=== PATIENT | male | born 1955 | race Caucasian/White ===

== ENCOUNTER 2016-10-20 10:38 | Emergency (ER) | payer OTHER ==
[~2016-10-20] VITALS: Ht 172.7 cm; Wt 74.8 kg
--- NOTE | 2016-10-20 11:31 | ED SKIN/ALLERGY COMPLAINT ---
History of Present Illness General Chief Complaint: Lower Extremity Problems Stated Complaint: L FOOT REDNESS/BRUISING [id number] Source: patient Exam Limitations: no limitations Vital Signs & Intake/Output Vital Signs & Intake/Output Vital Signs Date Time Temp Pulse Resp B/P B/P Pulse O2 O2 Flow FiO2 Mean Ox Delivery Rate 10/20 1543 98.6 57 148/74 100 10/20 1325 98.9 58 20 145/73 100 10/20 1044 97.2 80 16 139/81 93 Room Air Allergies Coded Allergies: No Known Allergies (10/20/16) Reconcile Medications Amoxicillin 875 MG TABLET 1 TAB PO BID cellulitis Sulfamethoxazole/Trimethoprim (Bactrim Ds Tablet) 800 MG-160 MG TABLET 1 TAB PO BID cellulitis Triage Note: 60 Y/O MALE C/O BRUISING AND SWELLING TO L FOOT X 3 WEEKS; STATES HE SAW HIS DOCTOR WHO QUESTIONED SPIDER BITE VS TICK BITE - HAD OUTPATIENT BLOODWORK WITH [facility] BUT UNSURE OF RESULTS. STATES BRUISING HAS EXTENDED OVER THE LAST WEEK. DENIES INJURIES OR TRAUMA. SWELLING AND BRUISING NOTED UP [place]. Triage Nurses Notes Reviewed? yes Onset: Abrupt Duration: day(s):, constant, continues in ED Timing: recent history Severity: severe No Modifying Factors: none HPI: 60-year-old male comes into emergency room for further evaluation of redness and swelling and pain to his left foot/left ankle area. Symptoms going on for about 2 weeks. Patient cannot recall any particular trauma to the area. Denies any bites that he is aware. Denies any fever or chills. Patient reports that the pain is getting progressively worse to the area. Denies any other associated symptoms. Denies any prior history of this ever happening before. (JIMMY JOHNSON) Past History Travel History Traveled to [place] past 21 day No Medical History Any Pertinent Medical History? 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 No (JIMMY JOHNSON) Review of Systems Review of Systems Constitutional: Reports: no symptoms. EENTM: Reports: no symptoms. Respiratory: Reports: no symptoms. Cardiovascular: Reports: no symptoms. GI: Reports: no symptoms. Genitourinary: Reports: no symptoms. Musculoskeletal: Reports: see HPI. Skin: Reports: see HPI. Neurological/Psychological: Reports: no symptoms. Hematologic/Endocrine: Reports: no symptoms. Immunologic/Allergic: Reports: no symptoms. All Other Systems: Reviewed and Negative (JIMMY JOHNSON) Physical Exam Physical Exam General Appearance: mild distress Head: atraumatic Eyes: Bilateral: normal appearance. Ears, Nose, Throat: normal ENT inspection, hearing grossly normal Neck: normal inspection Respiratory: no respiratory distress Cardiovascular: regular rate/rhythm Back: normal inspection Extremities: rash left foot/ankle see below Neurologic/Psych: awake, alert, oriented x 3, normal mood/affect Skin: intact, rash Skin Problem Character: erythema, ecchymosis, mild warmth, small white papules Lymphatic: no anterior cervical swetha (JIMMY JOHNSON) Progress Differential Diagnosis: abscess/cellulitis, allergic reaction, anaphylaxis, asthma, contact dermatitis, vasculitis, cellulitis, necrotizing fasciitis, spider bite, Plan of Care: Orders Procedure Date/time Status WESTERGREN SED RATE 10/20 UNK Complete Durable Medical Equipment 10/20 1517 Active BLOOD CULTURE 10/20 1130 Active C-REACTIVE PROTEIN 10/20 1130 Complete COMPREHENSIVE METABOLIC PANEL 10/20 1130 Complete CBC WITHOUT DIFFERENTIAL 10/20 1130 Complete Laboratory Tests 10/20/16 1254: ESR Westergren 19 H 10/20/16 1225: Anion Gap 7, Estimated GFR > 60, BUN/Creatinine Ratio 10.0, Glucose 79, Calcium 10.0, Total Bilirubin 0.6, AST 20, ALT 27, Alkaline Phosphatase 70, C-Reactive Prot, Quant 1.4 H, Total Protein 6.7, Albumin 3.7, Globulin 3.0, Albumin/ Globulin Ratio 1.2, CBC w Diff NO MAN DIFF REQ, RBC 4.04 L, MCV 90.9, MCH 30.1, RDW 14.3, MPV 9.4, Gran % 52.8, Lymphocytes % 36.9, Monocytes % 8.6, Eosinophils % 1.2, Basophils % 0.5, Absolute Granulocytes 3.0, Absolute Lymphocytes 2.1, Absolute Monocytes 0.5, Absolute Eosinophils 0.1, Absolute Basophils 0, PUBS MCHC 33.1 Microbiology 10/20 1235 BLOOD: Blood Culture - RECD 10/20 1225 BLOOD: Blood Culture - RECD Diagnostic Imaging: Viewed by Me: Radiology Read, Ultrasound. Discussed w/RAD: Radiology Read, Ultrasound. Radiology Impression: EXAM TYPE: RAD - XRY-ANKLE 3 OR MORE VIEWS L; XRY-FOOT COMPLETE, LEFT EXAMINATION: LEFT ANKLE AND LEFT FOOT. CLINICAL INFORMATION: Swelling and bruising. COMPARISON: None TECHNIQUE: 3 views of left ankle and 3 views of left foot. FINDINGS: LEFT ANKLE: There is no visible acute fracture or dislocation. There is a subtle lucency along the distal fibula could represent stress fracture. The ankle mortise and subtalar joints are normal. There is mild lateral malleolar soft tissue swelling. LEFT FOOT: There is no visible acute fracture or dislocation left foot. The left foot joint space is maintained. The soft tissues are normal. IMPRESSION: No definite fracture or dislocation seen. However there is a subtle lucency along the distal fibula suspicious but not definite for a stress fracture. There is associated mild lateral malleolar soft tissue swelling. Correlation with MRI or bone scan can be performed. DICTATED BY : LAUREN CASILLAS MD DATE/TIME DICTATED:10/20/161205 FUNDRAISING SALE REPRESENTATIVE:KRISSY DATE/TIME TRANSCRIBED:10/20/161205, EXAM TYPE: US - US-UNILATERAL VENOUS DOPPLER EXAMINATION: US TRIPLEX LOWER EXTREMITY, LEFT CLINICAL INFORMATION: Left lower extremity pain and swelling. COMPARISON: None. TECHNIQUE: Color-flow triplex imaging with spectral analysis and compression Doppler were performed on the left lower extremity. FINDINGS: Respiratory variation, normal compression and augmented flow are noted throughout the left lower extremity. The visualized common femoral vein, proximal greater saphenous vein, femoral vein, profunda femoral vein, popliteal vein and visualized mid calf venous segments show no evidence of deep venous thrombosis. Peroneal veins are not identified with certainty. There is no Lane's cyst. IMPRESSION: No ultrasound evidence of deep venous thrombosis involving the left lower extremity. DICTATED BY: GAYLA LUA MD DATE/TIME DICTATED:10/20/161205 FUNDRAISING SALE REPRESENTATIVE:LUCAS DATE/TIME TRANSCRIBED:10/20/161205 Comments: 10/20/2016 4:46:11 PM Patient clinically looks well. Nontoxic-appearing. In no apparent distress. Afebrile. Patient seen by Dr. Martinez. Rash is atypical. Likely cellulitis. Patient covered with oral antibiotics. To return in 2 days for wound check. Put in a pneumatic pool and given crutches and told to stay nonweightbearing due to possible distal fibular fracture although no acute fractures definitively seen him patient does not have any traumatic injuries to indicate a fracture. (FRANKI SHELBY,JIMMY) Departure Departure Disposition: HOME OR SELF CARE Condition: Stable Clinical Impression Primary Impression: Cellulitis of left foot Secondary Impressions: Ankle fracture Referrals: NELIDA FELIX,GREG GARAY (PCP/Family) Additional Instructions: Take Bactrim and amoxicillin as prescribed. Return in 2 days for a wound check. Stay nonweightbearing on left ankle using a cane as much as possible. Follow- up with orthopedic doctor provided next week. Return if any other concerns worsening symptoms sooner. Please go over all results of today's visit with your primary care doctor. Contact your primary care doctor to let them know you were here in the emergency room. There may be nonspecific findings which may not be related to your visit today here in the emergency room but may require further evaluation and chronic monitoring by your primary care doctor. If you had a laceration today the chance of foreign body always remains. You should follow-up with your primary care doctor for recheck in 3-5 days for a wound check. If you had an x-ray done there is a chance that a fracture could have been missed on initial read and you should follow-up with your primary care doctor for repeat x-rays if symptoms persist. If your blood pressure was elevated here in the emergency room please have rechecked by her primary care doctor within the next 48 hours by your primary care doctor. If you were prescribed a narcotic here in the emergency room or any type of controlled substances you're not allowed to drive while taking this medication or operate any type of heavy machinery. Narcotics can make you feel lightheaded dizziness nausea and can cause constipation. You may need to cotton picker operator a stool softener. Thank you for choosing [facility] emergency room. Please return to the emergency room immediately if you have any other concerns worsening of symptoms. Departure Forms: Customer Survey General Discharge Information Prescriptions: Current Visit Scripts Amoxicillin 1 TAB PO BID #20 TAB Sulfamethoxazole/Trimethoprim (Bactrim Ds Tablet) 1 TAB PO BID #20 TAB (JIMMY JOHNSON) PA/ENVIRONMENTAL ENGINEERING MANAGER Co-Sign Statement Statement: ED Attending supervision documentation- [] I saw and evaluated the patient. I have also reviewed all the pertinent lab results and diagnostic results. I agree with the findings and the plan of care as documented in the PA's/ENVIRONMENTAL ENGINEERING MANAGER's documentation. [X] I have reviewed the ED Record and agree with the PA's/ENVIRONMENTAL ENGINEERING MANAGER's documentation. [] Additions or exceptions (if any) to the PAs/ENVIRONMENTAL ENGINEERING MANAGER's note and plan are summarized below: [] (JOSAFAT MARTINEZ DO) Procedures Splinting Location: left foot Manual Alignment Performed: No Pre-Made Type: pneumatic boot Splint Applied By: splint applied by me Pre-Proc Neuro Vasc Exam: normal Post-Proc Neuro Vasc Exam: normal (JIMMY JOHNSON)
--- NOTE | 2016-10-20 12:11 | ULTRASOUND REPORT ---
EXAMINATION: US TRIPLEX LOWER EXTREMITY, LEFT CLINICAL INFORMATION: Left lower extremity pain and swelling. COMPARISON: None. TECHNIQUE: Color-flow triplex imaging with spectral analysis and compression Doppler were performed on the left lower extremity. FINDINGS: Respiratory variation, normal compression and augmented flow are noted throughout the left lower extremity. The visualized common femoral vein, proximal greater saphenous vein, femoral vein, profunda femoral vein, popliteal vein and visualized mid calf venous segments show no evidence of deep venous thrombosis. Peroneal veins are not identified with certainty. There is no Lane's cyst. IMPRESSION: No ultrasound evidence of deep venous thrombosis involving the left lower extremity.
--- NOTE | 2016-10-20 12:13 | RADIOLOGY REPORT ---
EXAMINATION: LEFT ANKLE AND LEFT FOOT. CLINICAL INFORMATION: Swelling and bruising. COMPARISON: None TECHNIQUE: 3 views of left ankle and 3 views of left foot. FINDINGS: LEFT ANKLE: There is no visible acute fracture or dislocation. There is a subtle lucency along the distal fibula could represent stress fracture. The ankle mortise and subtalar joints are normal. There is mild lateral malleolar soft tissue swelling. LEFT FOOT: There is no visible acute fracture or dislocation left foot. The left foot joint space is maintained. The soft tissues are normal. IMPRESSION: No definite fracture or dislocation seen. However there is a subtle lucency along the distal fibula suspicious but not definite for a stress fracture. There is associated mild lateral malleolar soft tissue swelling. Correlation with MRI or bone scan can be performed.
[2016-10-20 12:46] LABS: ABSOLUTE BASOPHIL COUNT 0 /CUMM (0.0-0.2); ABSOLUTE EOSINOPHIL COUNT 0.1 /CUMM (0.0-0.7); ABSOLUTE LYMPH COUNT 2.1 /CUMM (1.2-3.4); ABSOLUTE MONOCYTE COUNT 0.5 /CUMM (0.10-0.60); BASOPHIL % 0.5 % (0.0-2.0); EOSINOPHIL % 1.2 % (0-5); GRANULOCYTE % 52.8 % (42.2-75.2); HEMATOCRIT 36.7 % (42-52); MEAN CORPUSCULAR HGB 30.1 PG (27.0-31.0); MEAN CORPUSCULAR HGB CONC 33.1 G/DL (33.0-37.0); MEAN CORPUSCULAR VOLUME 90.9 FL (80.0-94.0); MEAN PLATELET VOLUME 9.4 FL (7.4-10.4); PLATELET COUNT 184 /CUMM (130-400); RBC DISTRIBUTION WIDTH 14.3 % (11.5-14.5); RED BLOOD CELL CT 4.04 /CUMM (4.70-6.10); WHITE BLOOD CELL COUNT 5.8 /CUMM (4.8-10.8)
[2016-10-20] MEDS ORDERED: AMOXICILLIN875 M1 PO (15:16)
[2016-10-20] MEDS ORDERED: BACTRIM DS TAB1 EACH PO (15:16)
[2016-10-20 15:43] VITALS: BP 148/74
== END 2016-10-20 16:33 ==
LOC: ERH 10:38
PROVIDERS: Physician Assistant Medical
DX: S82.892A Other fracture of left lower leg, initial encounter for closed fracture (principal); L03.116 Cellulitis of left lower limb; X58.XXXA Exposure to other specified factors, initial encounter; Y93.9 Activity, unspecified; Y92.9 Unspecified place or not applicable
CPT/HCPCS: 73610-LT; 73630-LT; 87040; 96374

== ENCOUNTER 2016-10-22 10:54 | Emergency (ER) | payer OTHER ==
[~2016-10-22] VITALS: Ht 172.7 cm; Wt 72.6 kg
[~2016-10-22 10:54] MED LIST: AMOXICILLIN875 M1 PO; BACTRIM DS TAB1 EACH PO
[2016-10-22 10:59] VITALS: BP 106/70
--- NOTE | 2016-10-22 11:14 | ED ANKLE/FOOT INJURY COMPLAINT ---
History of Present Illness General Chief Complaint: General Adult Stated Complaint: WOUND CHECK Source: patient Exam Limitations: no limitations Vital Signs & Intake/Output Vital Signs & Intake/Output Vital Signs Date Time Temp Pulse Resp B/P B/P Pulse O2 O2 Flow FiO2 Mean Ox Delivery Rate 10/22 1059 98.6 103 18 106/70 98 Room Air Allergies Coded Allergies: No Known Allergies (10/20/16) Reconcile Medications Amoxicillin 875 MG TABLET 1 TAB PO BID cellulitis Sulfamethoxazole/Trimethoprim (Bactrim Ds Tablet) 800 MG-160 MG TABLET 1 TAB PO BID cellulitis Triage Note: 60 YO MALE TO ER FOR WOUND CHECK OF L FOOT. STATES HE HAD ?CELLULITIS. PT WISH WALKING BOOT ON FOOT IN TRIAGE, UNABLE TO VISUALIZE. Triage Nurses Notes Reviewed? yes Duration: day(s):, constant, continues in ED Timing: recent history Severity: moderate, severe Pain/Injury Location: Left: Foot, Ankle. No Modifying Factors: none HPI: 60-year-old male comes into emergency room for further evaluation of wound check the left ankle foot. Patient was seen here the other day for a rash. Patient was started on oral antibiotics. There was a questionable stress fracture in the left distal fibular bone. Patient was put in a boot and told to stay nonweightbearing and was to return today for wound check. He denies any fever chills. He reports there there is some improvement of the redness. Denies any other associated symptoms. (JIMMY JOHNSON) Past History Travel History Traveled to [place] past 21 day No Medical History Any Pertinent Medical History? 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 No (JIMMY JOHNSON) Review of Systems Review of Systems Constitutional: Reports: no symptoms. EENTM: Reports: no symptoms. Respiratory: Reports: no symptoms. Cardiovascular: Reports: no symptoms. GI: Reports: no symptoms. Genitourinary: Reports: no symptoms. Musculoskeletal: Reports: no symptoms. Skin: Reports: see HPI. Neurological/Psychological: Reports: no symptoms. Hematologic/Endocrine: Reports: no symptoms. Immunologic/Allergic: Reports: no symptoms. All Other Systems: Reviewed and Negative (JIMMY JOHSNON) Physical Exam Physical Exam General Appearance: well developed/nourished, mild distress Head: atraumatic Eyes: Bilateral: normal appearance. Ears, Nose, Throat: normal ENT inspection, hearing grossly normal Neck: normal inspection Cardiovascular/Respiratory: no respiratory distress Back: normal inspection Leg/Knee/Thigh Left: normal inspection Ankle Left: erythema, warmth, pulses intact, Foot Left: see above Tendon: normal tendon function Psychiatric: awake, alert, oriented x 3 Skin: intact, normal color, warm/dry (JIMMY JOHNSON) Progress Differential Diagnosis: DVT, arterial insufficiency, cellulitis, septic arthritis, gout, fracture, dislocation, sprain, contact dermatitis, Plan of Care: 10/22/2016 11:53:41 AM There is an improvement from the rash of the day. Patient was placed in a boot as opposed to a posterior splint due to the infection and the concern that the splint would make a potentially worse. Patient was referred to orthopedic doctor who he is going to follow up with this week coming up. Continue antibiotics. Follow-up primary care doctor. Understands and agrees with plan of care. (JIMMY JOHNSON) Departure Departure Disposition: HOME OR SELF CARE Condition: Stable Clinical Impression Primary Impression: Visit for wound check Secondary Impressions: Ankle pain Referrals: GREG TRENT (PCP/Family) Additional Instructions: Continued to stay nonweightbearing on her left ankle. Follow-up with orthopedic doctor next week. Finish course of antibiotics. Return if any other concerns. Departure Forms: Customer Survey General Discharge Information (JIMMY JOHNSON) PA/STAPLER COIL [employer]IT Co-Sign Statement Statement: ED Attending supervision documentation- [] I saw and evaluated the patient. I have also reviewed all the pertinent lab results and diagnostic results. I agree with the findings and the plan of care as documented in the PA's/[employer]'s documentation. [X] I have reviewed the ED Record and agree with the PA's/[employer]'s documentation. [] Additions or exceptions (if any) to the PAs/[employer]'s note and plan are summarized below: [] (MICKEY FELIX,MARIBEL Jefferson)
== END 2016-10-22 11:21 ==
LOC: ERH 10:54
DX: M25.572 Pain in left ankle and joints of left foot (principal)

== ENCOUNTER 2016-10-25 19:56 | Inpatient (IN) | payer OTHER ==
[~2016-10-25] VITALS: Ht 172.7 cm; Wt 72.6 kg
--- NOTE | 2016-10-25 19:58 | NUR ---
PT BIBA ?ALTERED MENTAL STATUS. PT WAS FOUND EXTREMELY HOT TO THE TOUCH, PT AWAKE BUT NOT ABLE TO FOLLOW COMMANDS, NOT MAKE PURPOSEFUL MOVEMENTS. IS NOT ABLE TO FOLLOW COMMANDS. PER EMS PT HAS UNKNOWN PILLS AT BEDSIDE, PT GIVEN 1.2MG NARCAN WITH SOME RESPONSE BY EMS. AT BEDSIDE FOR PT EVAL.
--- NOTE | 2016-10-25 20:01 | NUR ---
PT RECTAL TEMPERATURE 105.4. PT NSR ON CADDYMASTER IN 80'S. O2 SAT 95% ON ROOM AIR. MADE AWARE.
--- NOTE | 2016-10-25 20:01 | ED GENERAL ADULT ---
See Addendum History of Present Illness General Chief Complaint: Altered Mental Status Stated Complaint: AMS Source: old records, EMS Exam Limitations: clinical condition Vital Signs & Intake/Output Vital Signs & Intake/Output Vital Signs Date Time Temp Pulse Resp B/P B/P Pulse O2 O2 Flow FiO2 Mean Ox Delivery Rate 10/25 2306 98.7 93 20 128/63 96 Room Air 10/25 2229 98.6 10/25 2128 100.5 81 17 113/56 97 Room Air 10/25 2120 101.5 10/25 2118 101.5 82 17 111/56 96 Room Air 10/26 2111 95 Room Air 10/25 2057 103.5 90 119/56 95 Room Air 10/25 2053 105.4 10/25 2030 97 16 124/82 95 Room Air 10/25 1957 105.4 111 14 134/98 94 Room Air Allergies Coded Allergies: No Known Allergies (10/20/16) Reconcile Medications Amoxicillin 875 MG TABLET 1 TAB PO BID cellulitis Atorvastatin Calcium 10 MG TABLET 1 TAB PO DAILY CHOLESTEROL (Reported) Diclofenac Sodium (Voltaren) 1 % GEL..GRAM. 4 GM TOP Q12H PAIN/INFLAMMATION ( Reported) apply to affected area(s) Gabapentin (Unknown Strength) CAPSULE (Unknown Dose) PO AD UNKNOWN (Reported) Levothyroxine Sodium 112 MCG TABLET 1 TAB PO DAILY THYROID (Reported) Lisinopril 5 MG TABLET 1 TAB PO DAILY BP (Reported) Magnesium Oxide 400 MG TABLET 1 TAB PO BID SUPPLEMENT (Reported) Oxycodone HCl 10 MG TABLET 1 TAB PO Q6H PAIN (Reported) Quetiapine Fumarate (Seroquel XR) 300 MG TAB.ER.24H 1 TAB PO QPM UNKNOWN ( Reported) Sulfamethoxazole/Trimethoprim (Bactrim Ds Tablet) 800 MG-160 MG TABLET 1 TAB PO BID cellulitis Trazodone HCl (Unknown Strength) TABLET (Unknown Dose) PO AD UNKNOWN ( Reported) Venlafaxine HCl (Venlafaxine HCl ER) (Unknown Strength) CAP.ER.24H (Unknown Dose) PO AD UNKNOWN (Reported) Triage Nurses Notes Reviewed? yes HPI: Patient was found semi-responsive on his living room floor by his roommate. Upon EMS arrival they noted the apartment to be very hot. Patient very hot to the touch. Patient had pinpoint pupils. Patient was given 1.2 mg of Narcan. He shouldn't mental status slightly improved however the patient remained nonverbal and not following commands. Patient was collar for protection. Patient has a small abrasion above his left eye. Patient was seen in the emergency department 2 days ago for an evaluation and follow-up for cellulitis of his left foot. Patient has been on dual antibiotics. Past History Medical History Any Pertinent Medical History? 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 No Review of Systems Review of Systems Constitutional: Reports: see HPI. Physical Exam Physical Exam General Appearance: lethargic, severe distress Head: SMALL ABRASION ABOVE HIS LEFT EYE, NO HEMATOMA Eyes: Bilateral: PERRL, EOMI. Ears, Nose, Throat: normal pharynx, DRY MUCOSA Neck: normal inspection, supple, full range of motion Respiratory: normal breath sounds, lungs clear Cardiovascular: normal peripheral pulses, tachycardia Gastrointestinal: normal bowel sounds, soft, no organomegaly Back: normal inspection, normal range of motion Extremities: normal inspection, normal capillary refill, normal range of motion, no edema Neurologic/Psych: disoriented x 3 Skin: HOT/DRY Core Measures ACS in differential dx? No CVA/TIA Diagnosis: No Severe Sepsis Present: No Septic Shock Present: No Progress Differential Diagnoses I considered the following diagnoses in my evaluation of the patient: [ Heatstroke, trauma, sepsis] Plan of Care: Orders Procedure Date/time Status Patient Data 10/25 2352 Active Lab Add-on Test 10/25 2312 Active Patient Data 10/25 2259 Active CREATINE PHOSPHOKINASE 10/25 2025 Complete BLOOD CULTURE 10/26 1999 Active URINE DRUGS OF ABUSE 10/26 1999 Complete URINALYSIS 10/26 1999 Complete TROPONIN LEVEL 10/26 1999 Complete LACTIC ACID 10/26 1999 Complete ETHANOL 10/26 1999 Complete COMPREHENSIVE METABOLIC PANEL 10/26 1999 Complete CBC WITHOUT DIFFERENTIAL 10/26 1999 Complete EKG 10/26 1999 Active Telemetry/Court Manager 10/25 UNK Active Current Medications Sig/Constance Start time Last Medication Dose Stop Time Status Admin Sodium Chloride 1,000 ML Q6H 10/25 2330 AC (Normal Saline 0.9%) Laboratory Tests 10/25/16 2300: Lactic Acid Cancelled 10/25/16 2200: Urine Opiates Screen 227.00, Methadone Screen 44, Barbiturate Screen < 60, Ur Phencyclidine Scrn < 6.00, Amphetamines Screen < 100, U Benzodiazepines Scrn < 85, Urine Cocaine Screen < 50, Urine Cannabis Screen < 5.00, Urinalysis LIGHT H , Urine Color YEL, Urine Clarity HAZY H, Urine pH 7.5, Ur Specific [place] 1.010, Urine Protein NEG, Urine Ketones NEG, Urine Nitrite NEG, Urine Bilirubin NEG, Urine Urobilinogen 0.2, Ur Leukocyte Esterase NEG, Ur Microscopic SEDIMENT EXAMINED, Urine RBC 1-3, Urine Hemoglobin LARGE H, Urine Glucose NEG 10/25/162024: Anion Gap 8, Estimated GFR 48 L, BUN/Creatinine Ratio 6.7 L, Glucose 105 H, Lactic Acid 1.5, Calcium 9.0, Total Bilirubin 0.7, AST 24, ALT 33, Alkaline Phosphatase 57, Creatine Kinase 334 H, Troponin I < 0.01, Total Protein 6.0 L, Albumin 3.2 L, Globulin 2.8, Albumin/Globulin Ratio 1.1, CBC w Diff NO MAN DIFF REQ, RBC 3.52 L, MCV 89.9, MCH 30.4, RDW 14.3, MPV 9.2, Gran % 73.4, Lymphocytes % 16.2 L, Monocytes % 8.9, Eosinophils % 0.9, Basophils % 0.6, Absolute Granulocytes 3.3, Absolute Lymphocytes 0.7 L, Absolute Monocytes 0.4, Absolute Eosinophils 0, Absolute Basophils 0, PUBS MCHC 33.8, Serum Alcohol < 10.0 Microbiology 10/25 2044 BLOOD: Blood Culture - RECD 10/25 2024 BLOOD: Blood Culture - RECD Diagnostic Imaging: Viewed by Me: Radiology Read, CT Scan. Discussed w/RAD: Radiology Read, CT Scan. Radiology Impression: PATIENT: JOSAFAT ALVARADO PRESENT AGE: 60 PATIENT ACCOUNT NO: [id number] : 55 LOCATION: [facility] ORDERING PHYSICIAN: MARIBEL AREVALO MD SERVICE DATE: 10/25/16-2057 EXAM TYPE: CAT - CT CERV SPINE WO IV CONTRAST; CT HEAD WO IV CONTRAST EXAMINATION: CT HEAD WITHOUT CONTRAST CT CERVICAL SPINE WITHOUT CONTRAST CLINICAL INFORMATION: Found down. Head injury. COMPARISON: None. TECHNIQUE: Contiguous axial imaging was performed from the skull base to vertex without intravenous administration of contrast. In addition, helical noncontrast CT imaging was acquired through the cervical spine and source images were reviewed along with axial reconstructions and sagittal and coronal MPRs. DLP: 1051 mGy-cm FINDINGS: HEAD: There is a nodular focus of high density in the high left frontal lobe centered in the cortex measuring 6 mm without surrounding edema. There is some platelike high density within a nearby high left frontal sulcus. There is also some slightly high density which may be within a regional cortical vein. No evolving territorial infarct. Mild to moderate generalized prominence of the ventricles, sulci, and extra-axial CSF spaces. 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 There is mild ex vacuo dilatation of the frontal horn of the right lateral ventricle. There is no shift of the normally midline structures. The visualized posterior fossa is unremarkable. No calvarial fractures. There is mild mucosal thickening in the frontal, ethmoid, sphenoid, and right maxillary sinuses with a retention cyst in the right maxillary sinus. The mastoid air cells and middle ear cavities are clear. The temporomandibular joints articulate normally. No obvious soft tissue abnormality. The orbits appear unremarkable. CERVICAL SPINE: There is no evidence of cervical spinal fracture or traumatic subluxation vertebral body height is maintained. Sagittal alignment is maintained. No prevertebral soft tissue swelling. Atlantoaxial and atlantooccipital articulations are maintained. No abnormal density within the cervical canal. There is no significant bony canal stenosis. Right-sided uncovertebral hypertrophy mildly narrows the right foramen at C4-C5. Disc osteophyte complex results in high-grade left and moderate right foraminal stenosis at C6-C7. There is prominence of the lymphoid tissue at the tongue base which can be correlated with direct inspection. Scattered foci of mineralization are present within this region. The visualized larynx appears unremarkable. No focal thyroid lesions. No upper mediastinal adenopathy. The lung apices demonstrate some biapical pleural-parenchymal scarring without evidence of pneumothorax. Some small foci of air are seen within the jugular veins bilaterally. No cervical adenopathy. IMPRESSION: 1. A 6 mm nodular focus of high density within the high left frontal lobe, possibly a small intraparenchymal hemorrhage, although a small cortical mass is not excluded. Correlation with MRI of the brain without and with contrast is suggested. Minor regional high density within the left frontal sulci concerning for subarachnoid hemorrhage. There is no significant soft tissue swelling. 2. A curvilinear focus of high density along the left frontal convexity near the above described abnormalities, nonspecific but appearing to be along the course of a regional cortical vein. A small region of cortical vein thrombosis would be hard to exclude. This too can be further evaluated with MRI/MRV. 3. No evidence of cervical spinal fracture or traumatic subluxation. 4. Prominence of the lymphoid tissue at the tongue base which can be correlated with direct inspection. This critical result was communicated with Dr. Arevalo at 10:15PM on 10/25/2016 and the content and urgency was understood at the time of direct communication. DICTATED BY: SKYLAR BOND MD DATE/TIME DICTATED:10/25/162157 FURNACE COOLER:KRISSY DATE/ TIME TRANSCRIBED:10/25/162157 CONFIDENTIAL, DO NOT COPY WITHOUT APPROPRIATE AUTHORIZATION. <Electronically signed in Other Vendor System> SIGNED BY: SKYLAR BOND MD 10/25/162220 Initial ED EKG: NSR, nonspecific ST T wave chg Comments: Patient's temperature has come down with a cold blanket and heavy Tylenol. Patient is currently awake alert and oriented. Patient states that he only took his pain medication as it was prescribed. Patient is received 3 L of fluid as well as broad spectrum antibiotics however given everything it seems that this is more of a heat stroke then true sepsis. Discussed with Dr. Barnhart, CAT scan results have been relayed. Unlikely subarachnoid hemorrhage given the lack of any neurological findings nor is there any headache. ED Sepsis Exam Date of Focused Sepsis Exam: 10/25/16 Time of Focused Sepsis Exam: 2100 Sepsis Cardiac Exam: Tachycardia Sepsis Resp Exam: CTA Sepsis Cap Refill Exam: <2 Sec Sepsis Peripheral Pulse Exam: Normal Sepsis Peripheral Pulse Location: Radial Sepsis Skin Color Exam: Normal for Ethnicity Skin Temp/Moisture Exam: Hot/Dry Departure Departure Disposition: STILL A PATIENT Condition: Guarded Clinical Impression Primary Impression: Heat stroke Secondary Impressions: Abnormal head CT Referrals: GREG TRENT (PCP/Family) Departure Forms: Customer Survey General Discharge Information Admission Note Spoke With: BURKE MONTE MD Documentation of Exam: Documentation of any treatments & extenuating circumstances including Concerns Regarding Discharge (functional status, medication knowledge or non-compliance, living conditions, etc.) that warrant an admission rather than observation: [IV FLUIDS, MRI/MRA OF HEAD, NEURO CONSULT] Critical Care Note Critical Care Note Critical Care Time: mins: (90 MIN)
--- NOTE | 2016-10-25 20:17 | NUR ---
PT ATTMPTED TO HAVE DOZIER PLACED, CATHTETER INABLE TO BE ADVANCED THROUGH. RN MAC AT BEDSIDE FOR ATTEMPT, UNSUCCESSFUL. UPON GETTING PT CHANGED, GETTING BLOODWORK/CULTURES, AND PLACING PT ON COOLING BLANKETS, PT IV BECAME DISLODGED.
--- NOTE | 2016-10-25 20:30 | NUR ---
LABS SENT (BLUE,SST,LAV,COOPER, BC #1)
[2016-10-25 20:45] LABS: ABSOLUTE BASOPHIL COUNT 0 /CUMM (0.0-0.2); ABSOLUTE EOSINOPHIL COUNT 0 /CUMM (0.0-0.7); ABSOLUTE GRANULOCYTE CT 3.3 /CUMM (1.4-6.5); ABSOLUTE LYMPH COUNT 0.7 /CUMM (1.2-3.4); ABSOLUTE MONOCYTE COUNT 0.4 /CUMM (0.10-0.60); BASOPHIL % 0.6 % (0.0-2.0); EOSINOPHIL % 0.9 % (0-5); GRANULOCYTE % 73.4 % (42.2-75.2); MEAN CORPUSCULAR HGB 30.4 PG (27.0-31.0); MEAN CORPUSCULAR HGB CONC 33.8 G/DL (33.0-37.0); MEAN CORPUSCULAR VOLUME 89.9 FL (80.0-94.0); MEAN PLATELET VOLUME 9.2 FL (7.4-10.4); PLATELET COUNT 144 /CUMM (130-400); RBC DISTRIBUTION WIDTH 14.3 % (11.5-14.5); RED BLOOD CELL CT 3.52 /CUMM (4.70-6.10); WHITE BLOOD CELL COUNT 4.6 /CUMM (4.8-10.8)
[2016-10-25 20:47] LABS: HEMATOCRIT 31.6 % (42-52)
--- NOTE | 2016-10-25 20:50 | NUR ---
BLOOD CULTURE #2 SENT
--- NOTE | 2016-10-25 20:54 | NUR ---
TWO IV'S EST BY RN PAIGE #18 IN RIGHT FOREARM AND #18 IN RAC. 1G OFFIRMEV ADMINISTERED AND TWO LITERS OF NS INFUSING PER EMAR.
--- NOTE | 2016-10-25 21:20 | NUR ---
PT REMAINS MAKING NON-PURPOSEFUL MOVEMENTS, UNABLE TO ANSWER QUESTIONS OR FOLLOW COMMANDS. PT REMAINS ON COOLING BLANKETS, RECTAL TEMP 101.5. REMAINS IN NSR AT 82 AND 96% ON ROOM AIR. 3RD LITER OF NS INFUSING PER EMAR
[2016-10-25] MEDS ORDERED: LEVOTHYROXINE112 MCG PO (21:25)
[2016-10-25] MEDS ORDERED: ATORVASTATIN CA10 M1 PO (21:25)
[2016-10-25] MEDS ORDERED: LISINOPRIL5 M1 PO (21:26)
[2016-10-25] MEDS ORDERED: VOLTAREN100 GM TOP (21:26)
[2016-10-25] MEDS ORDERED: SEROQUEL XR300 M1 PO (21:27)
[2016-10-25] MEDS ORDERED: GABAPENTIN400 M2 PO (21:27)
[2016-10-25] MEDS ORDERED: MAGNESIUM OXID400 M1 PO (21:27)
--- NOTE | 2016-10-25 21:28 | NUR ---
PT MEDICATED WITH 1G FORTAZ PER EMAR. PT RECTAL TEMP DOWN TO 100.5.
[2016-10-25] MEDS ORDERED: OXYCODONE HCL10 M2 PO (21:30)
[2016-10-25] MEDS ORDERED: TRAZODONE HCL50 M1 PO (21:32)
[2016-10-25] MEDS ORDERED: VENLAFAXINE HCL75 M1 PO (21:33)
--- NOTE | 2016-10-25 21:45 | NUR ---
PT NOW ABLE TO ANSWER QUESTIONS, WAS ABLE TO RECALL EVENTS FROM EARLIER TODAY AND MEDICATIONS HE HAS BEEN TAKING. PT TO CAT SCAN VIA STRETCHER. TEMP DOWN TO 100.3. MADE AWARE.
--- NOTE | 2016-10-25 22:08 | NUR ---
PT FROM CAT SCAN. PLACED BACK ON RAYON TESTER, NSR @ 78. REMAINS AT 96% ON ROOM AIR. PT NOW ABLE TO ANSWER QUESTIONS APPROPRIATELY, DROWSY BUT AROUSABLE TO VOICE. MAKING PURPOSEFUL MOVEMENTS. PT MEDICATED WITH VANCOMYCIN PER EMAR
--- NOTE | 2016-10-25 22:10 | NUR ---
PT ABLE TO URINATE IN URINAL INDEPENDENTLY, URINE TRIO OBTAINED AND SENT TO LAB
--- NOTE | 2016-10-25 22:13 | NUR ---
XRAY AT BEDSIDE FOR IMAGING
--- NOTE | 2016-10-25 22:16 | NUR ---
PT TO REMAIN OFF COOLING BLANKETS PER VERBAL ORDER BY . PT REMAINS ALERT AND ORIENTED X3. NSR AT 78, 96% ON ROOM AIR. TEMPERATURE 98.6
--- NOTE | 2016-10-25 22:21 | CT SCAN REPORT ---
EXAMINATION: CT HEAD WITHOUT CONTRAST CT CERVICAL SPINE WITHOUT CONTRAST CLINICAL INFORMATION: Found down. Head injury. COMPARISON: None. TECHNIQUE: Contiguous axial imaging was performed from the skull base to vertex without intravenous administration of contrast. In addition, helical noncontrast CT imaging was acquired through the cervical spine and source images were reviewed along with axial reconstructions and sagittal and coronal MPRs. DLP: 1051 mGy-cm FINDINGS: HEAD: There is a nodular focus of high density in the high left frontal lobe centered in the cortex measuring 6 mm without surrounding edema. There is some platelike high density within a nearby high left frontal sulcus. There is also some slightly high density which may be within a regional cortical vein. No evolving territorial infarct. Mild to moderate generalized prominence of the ventricles, sulci, and extra-axial CSF spaces. 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 There is mild ex vacuo dilatation of the frontal horn of the right lateral ventricle. There is no shift of the normally midline structures. The visualized posterior fossa is unremarkable. No calvarial fractures. There is mild mucosal thickening in the frontal, ethmoid, sphenoid, and right maxillary sinuses with a retention cyst in the right maxillary sinus. The mastoid air cells and middle ear cavities are clear. The temporomandibular joints articulate normally. No obvious soft tissue abnormality. The orbits appear unremarkable. CERVICAL SPINE: There is no evidence of cervical spinal fracture or traumatic subluxation vertebral body height is maintained. Sagittal alignment is maintained. No prevertebral soft tissue swelling. Atlantoaxial and atlantooccipital articulations are maintained. No abnormal density within the cervical canal. There is no significant bony canal stenosis. Right-sided uncovertebral hypertrophy mildly narrows the right foramen at C4-C5. Disc osteophyte complex results in high-grade left and moderate right foraminal stenosis at C6-C7. There is prominence of the lymphoid tissue at the tongue base which can be correlated with direct inspection. Scattered foci of mineralization are present within this region. The visualized larynx appears unremarkable. No focal thyroid lesions. No upper mediastinal adenopathy. The lung apices demonstrate some biapical pleural-parenchymal scarring without evidence of pneumothorax. Some small foci of air are seen within the jugular veins bilaterally. No cervical adenopathy. IMPRESSION: 1. A 6 mm nodular focus of high density within the high left frontal lobe, possibly a small intraparenchymal hemorrhage, although a small cortical mass is not excluded. Correlation with MRI of the brain without and with contrast is suggested. Minor regional high density within the left frontal sulci concerning for subarachnoid hemorrhage. There is no significant soft tissue swelling. 2. A curvilinear focus of high density along the left frontal convexity near the above described abnormalities, nonspecific but appearing to be along the course of a regional cortical vein. A small region of cortical vein thrombosis would be hard to exclude. This too can be further evaluated with MRI/MRV. 3. No evidence of cervical spinal fracture or traumatic subluxation. 4. Prominence of the lymphoid tissue at the tongue base which can be correlated with direct inspection. This critical result was communicated with Dr. Maki at 10:15PM on 10/25/2016 and the content and urgency was understood at the time of direct communication.
--- NOTE | 2016-10-25 22:23 | NUR ---
PT DAUGHTERS NAME OFELIA YOST CELL PHONE NUMBER IS #[phone] PLEASE CONTACT FOR ANY REASON.
--- NOTE | 2016-10-25 22:30 | RADIOLOGY REPORT ---
EXAMINATION: XR PORTABLE CHEST CLINICAL INFORMATION: Fever, altered mental status. COMPARISON: None. TECHNIQUE: Portable frontal view of the chest was obtained. FINDINGS: The lungs are hypoinflated without focal airspace consolidation. Mildly prominent lung markings within the bilateral lungs. No focal airspace consolidation. No pleural effusions or pneumothoraces are identified. Cardiomediastinal contours are within normal limits. Soft tissues are unremarkable. No acute osseous abnormality is identified. IMPRESSION: Pulmonary hypoinflation. Mildly prominent lung markings within the bilateral lungs could reflect bronchovascular crowding given low lung volumes. No focal airspace consolidation is identified. If clinical concern for infection persists, consider correlation with PA and lateral chest x-ray.
--- NOTE | 2016-10-25 22:37 | NUR ---
PT REMAINS CALM AND COOPERATIVE OFFERING NO COMPLAINTS AT THIS TIME. SPOKE WITH PTS DAUGHTER WITH PT PERMISSION, MADE AWARE PT WILL BE ADMITTED TO GENERAL MEDICINE.
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
--- NOTE | 2016-10-25 23:14 | NUR ---
PT TO BEDSIDE COMMODE IN ORDER TO MOVE HIS BOWELS
--- NOTE | 2016-10-25 23:17 | NUR ---
PT TO COMMODE, STEADY GAIT NOTED, BM NOTED. PT ABLE TO WIPE HIMSELF WITHOUT DIFFICULTY.
--- NOTE | 2016-10-26 00:08 | NUR ---
PT MEDICATED WITH NS INFUSING AT 150MLS/HR EMAR
--- NOTE | 2016-10-26 01:01 | NUR ---
PT REMAINS RESTING IN STRETCHER. USING URINAL INDEPENDENTLY. NSR ON TURBINE INSPECTOR AT 69. OFFERING NO COMPLAINTS AT THIS TIME. WILL CTM.
--- NOTE | 2016-10-26 02:09 | NUR ---
PT STATING HE HAS TO HAVE A BOWEL MOVEMENT. PT REQUESTING TO AMBULATE TO BATHROOM. NON-SKID SOCKS PROVIDED, PT AMBULATED WITH STEADY GAIT, NO DISTRESS, ASSISTANCE BY THIS RN TO BATHROOM.
--- NOTE | 2016-10-26 03:33 | NUR ---
PT AMBULATED TO BATHROOM WITH STEADY GAIT NOTED, BACK TO BED AT THIS TIME. NSR ON CHECKROOM CHIEF. OFFERING NO COMPLAINTS. SIDE RAILS UPRIGHT, CALL MARCOS WITHIN REACH. LIGHTS DIMMED FOR COMFORT
--- NOTE | 2016-10-26 04:07 | NUR ---
PT IPOC IS UP TO DATE AT THIS TIME
--- NOTE | 2016-10-26 05:17 | NUR ---
PT REMAINS ASLEEP WITH RR NOTED. NSR ON POWER TRANSFORMER INSPECTOR. SIDE RAILS UPRIGHT, CALL MARCOS WITHIN REACH. WILL CTM.
--- NOTE | 2016-10-26 05:44 | NUR ---
REPEAT BLOOD WORK OBTAINED AND SENT TO LAB -SST,[facility]
[2016-10-26 05:53] LABS: ABSOLUTE BASOPHIL COUNT 0 /CUMM (0.0-0.2); ABSOLUTE EOSINOPHIL COUNT 0 /CUMM (0.0-0.7); ABSOLUTE GRANULOCYTE CT 3.7 /CUMM (1.4-6.5); ABSOLUTE LYMPH COUNT 1.9 /CUMM (1.2-3.4); ABSOLUTE MONOCYTE COUNT 0.8 /CUMM (0.10-0.60); BASOPHIL % 0.5 % (0.0-2.0); EOSINOPHIL % 0.7 % (0-5); GRANULOCYTE % 57.1 % (42.2-75.2); HEMATOCRIT 34.4 % (42-52); MEAN CORPUSCULAR HGB 30.3 PG (27.0-31.0); MEAN CORPUSCULAR HGB CONC 33.5 G/DL (33.0-37.0); MEAN CORPUSCULAR VOLUME 90.4 FL (80.0-94.0); MEAN PLATELET VOLUME 9.5 FL (7.4-10.4); PLATELET COUNT 154 /CUMM (130-400); RBC DISTRIBUTION WIDTH 14.4 % (11.5-14.5); RED BLOOD CELL CT 3.81 /CUMM (4.70-6.10); WHITE BLOOD CELL COUNT 6.4 /CUMM (4.8-10.8)
--- NOTE | 2016-10-26 05:58 | Admission Certification ---
Admission Certification Certification Statement - As attending physician, I certify that at the time of - admission, based on clinical presentation, severity of - symptoms, need for further diagnostic testing and - therapeutic interventions, and risk of adverse outcomes - without in-hospital treatment, in my clinical assessment, - this patient requires an acute hospital stay for a minimum - of two nights or longer. I have also considered psychsocial - factors such as support system, advanced age, financial - issues, cognitive issues, and failed out-patient treatments, - past re-admission history, safety of patient, and lack of - compliance as applicable. Specific rationale supporting this admission is: Syncope, heat stroke, left lower extremity cellulitis
--- NOTE | 2016-10-26 06:55 | NUR ---
EKG IN PROGRESS. 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 WILL CTM.
--- NOTE | 2016-10-26 07:13 | NUR ---
PT MEDICATED WITH SYNTHROID PER EMAR
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
--- NOTE | 2016-10-26 07:49 | NUR ---
ASSUMED CARE OF PT AT THIS TIME PT AWAKE, ALERT AND ORIENTED X 4, SPEAKING CLEARLY WITH NO COMPLAINTS. STATES HE ONLY REMEMBERS BEING DIZZY AND FALLING YESTERDAY; DOES NOT RECALL EVENTS BRINGING HIM INTO ED. DENIES PAIN. DECLINES OFFER OF BREAKFAST, STATING "I AM NOT A MORNING PERSON. ILL PICK LATER" REQUESTING AND PROVIDED WITH PITCHER OF ICE WATER NORMAL SALINE INFUSING AT 150 ML/HR PER JUL. MED WITH CEFAZOLIN PER JUL.
--- NOTE | 2016-10-26 08:02 | NUR ---
IPOC UPDATED/MAINTAINED AT THIS TIME
--- NOTE | 2016-10-26 08:06 | NUR ---
ALPS INITIATED AT THIS TIME PER ORDER ONLY PLACED TO R LOWER EXTREMITY CELLULITIS ON ON L ANKLE/CALF. HOUSE STAFF AT BEDSIDE AND AWARE OF SAME PT HAS CALL LIGHT IN REACH AND IS AWARE OF ITS USE
--- NOTE | 2016-10-26 09:37 | NUR ---
PHARMACY CALLED FOR 1000 MEDS
[2016-10-26] MEDS ORDERED: METAXALONE800 M1 PO (09:57)
--- NOTE | 2016-10-26 10:08 | NUR ---
MED WITH MAG-OX PER JUL REMAINS WITHOUT ANY COMPLAINT EVALD BY SURGICAL PA
--- NOTE | 2016-10-26 10:48 | NUR ---
TO/FROM CT SCAN REMAINS WITHOUT ANY COMPLAINTS. NO NEURO DEFICITS NOTED.
--- NOTE | 2016-10-26 10:57 | CT SCAN REPORT ---
EXAMINATION: CT HEAD WITHOUT CONTRAST CLINICAL INFORMATION: Follow-up hemorrhage status post fall. COMPARISON: 10/25/2016. TECHNIQUE: Contiguous axial imaging was performed from the skull base to vertex without intravenous contrast. DLP: 696 mGy-cm. FINDINGS: There is redemonstration of hyperattenuation along the high left frontal lobe which may represent focal subarachnoid hemorrhage or cortical hemorrhage, series 2 image 45. This is similar to prior. Additional subarachnoid hemorrhage is seen more peripherally along the left frontal lobe, similar in appearance to prior. No new parenchymal hemorrhage. No intraventricular hemorrhage. No abnormal mass effect or midline shift. Smith to white matter differentiation is well preserved. Chronic lacunar infarct in the head of the right caudate. Bilateral lentiform lacunar infarcts. No hydrocephalus. Proportional prominence of the ventricles and sulcal spaces is consistent with mild volume loss. Patchy periventricular and deep white matter hypoattenuation is consistent with mild small vessel ischemic changes. The osseous structures and soft tissues are normal. The mastoid air cells and visualized portions of the paranasal sinuses are well aerated. IMPRESSION: Similar appearance of areas of hemorrhage along the left frontal lobe, favoring subarachnoid hemorrhage. The focal hemorrhage at the high aspect of the left frontal lobe could be cortical in nature. No new hemorrhage or focal abnormality.
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
--- NOTE | 2016-10-26 11:14 | NUR ---
MRI WILL TAKE PT AROUND 1300. PT INFORMED OF SAME. STATES HE HAS RODS IN LEGS BUT HAS HAD MRI IN THE PAST WITH NO COMPLICATIONS. HOGSHEAD WEIGHER INFORMED OF SAME
--- NOTE | 2016-10-26 12:09 | NUR ---
DILIP DELIVERED AWAITING MRI AT 1300
--- NOTE | 2016-10-26 14:24 | NUR ---
REMAINS RESTING IN ROOM WITH NO COMPLAINTS. AWAITING MRI. DENIES PAIN.
--- NOTE | 2016-10-26 14:47 | NUR ---
TAKEN TO MRI AT THIS TIME. REMAINS WITHOUT ANY ADDITIONAL COMPLAINTS. DENIES PAIN.
--- NOTE | 2016-10-26 15:16 | NUR ---
REPORT GIVEN TO WAYNE MOLINA
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
--- NOTE | 2016-10-26 16:16 | NUR ---
RETURNS FROM MRI. PLACED IN BED AND UTILIZATION MANAGEMENT MANAGER REAPPLIED.
--- NOTE | 2016-10-26 17:03 | MRI REPORT ---
EXAMINATION: MR BRAIN WITH AND WITHOUT CONTRAST MR ANGIOGRAPHY OF THE HEAD WITHOUT CONTRAST CLINICAL INFORMATION: Follow-up intracerebral hemorrhage. COMPARISON: CT scans earlier 10/26/2016 and 10/25/2016. TECHNIQUE: Multiplanar, multisequence imaging of the brain was obtained without and with intravenous administration of contrast. 3-D [id number] MR angiography was performed. Multiple 3-D reformatted images were processed on the technologist workstation. Intravenous contrast: OptiMARK 15 mL. Multiple sequences are severely degraded by patient motion artifact. FINDINGS: MRI BRAIN: There are areas of low gradient signal in the sulci in the high left frontal lobe and also laterally in the left frontal lobe. These regions demonstrate mild increased FLAIR signal, and the findings are consistent with subarachnoid blood. There are no focal parenchymal hemorrhages. No intraventricular blood is seen. No definite extra-axial fluid collections are seen. No diffusion abnormalities are identified to suggest an acute or subacute infarct. The ventricles and sulci are commensurately prominent consistent with mild diffuse volume loss. No mass effect or midline shift is seen. There are a few patchy areas of increased T2 and FLAIR signal in the periventricular and subcortical white matter, consistent with chronic microvascular ischemic changes. There are lacunar infarcts in the basal ganglia bilaterally, most prominent in the right caudate head. There is focal ex-vacuo dilatation of the anterior horn of the right lateral ventricle in this region. The brainstem and cerebellum are normal. On postcontrast imaging, there is no abnormal parenchymal or leptomeningeal enhancement. The craniovertebral junction, marrow signal, and midline structures are normal. The major intracranial flow-voids at the level of the douglas of Oliveira are preserved. The dural venous sinus flow-voids are maintained. The mastoid air cells are well-aerated. There is a retention cyst in the anterior right maxillary sinus. MRA HEAD: In the anterior circulation, the distal internal carotid arteries within the neck appear normal. The intracranial internal carotid arteries and their bifurcations appear normal. Imaging of the middle and anterior cerebral arteries is particularly degraded by motion artifact. The middle and anterior cerebral arteries bilaterally demonstrate normal caliber with no evidence of focal stenosis, aneurysm or vascular malformation. The anterior communicating artery is normal. In the posterior circulation, the vertebral arteries are codominant. They are patent bilaterally. The basilar artery appears normal. The posterior cerebral arteries have normal caliber. IMPRESSION: 1. The study redemonstrates subarachnoid hemorrhage in the right frontal region as described above. 2. There are no acute extra-axial fluid collections. There is no evidence of acute infarct. 3. There are changes consistent with diffuse volume loss. 4. MR angiography of the intracranial circulation does not demonstrate focal stenosis, aneurysm or vascular malformation. The study is within normal limits, but suboptimal due to patient motion artifact.
--- NOTE | 2016-10-26 17:18 | NUR ---
BED ASSIGNMENT 174-02
--- NOTE | 2016-10-26 17:37 | MRI REPORT ---
EXAMINATION: MR ANKLE WITHOUT CONTRAST, LEFT CLINICAL INFORMATION: Left ankle swelling and erythema. COMPARISON: Radiographs of the foot and ankle from 10/20/2016. TECHNIQUE: Multiplanar MR imaging was performed through the left ankle on a high-field scanner without intravenous contrast. FINDINGS: TECHNICAL COMMENT: Image quality suboptimal due to motion on multiple sequences. ACHILLES TENDON: The Achilles tendon is intact to the level of its calcaneal insertion; a trace amount of fluid is present in the retrocalcaneal bursa; no overt bursitis or inflammation within Kager's fat pad. OTHER TENDONS: Peroneal, flexor, extensor and tibialis tendons are intact. No evidence of tendon tear, tendon subluxation or tenosynovitis. PLANTAR FASCIA: Intact. LIGAMENTS: The tibiofibular syndesmotic ligaments are unremarkable. At the lateral ankle, the talofibular and calcaneofibular ligaments are intact; the superior peroneal retinaculum is unremarkable. At the medial ankle, the superficial and deep deltoid ligaments are intact. The spring ligament complex is normal. The bifurcated ligament and Lisfranc ligament are normal. BONES, JOINTS, ARTICULAR CARTILAGE: The articular cartilage of the ankle is suboptimally evaluated on these motion degraded images. No focal chondral defects are identified. Mild prominence of intramedullary vessels within the distal tibia, talus and calcaneus with patchy appearance of bone marrow edema suggesting presence of hyperemia from nonspecific inflammation at the ankle and hindfoot. Small ankle joint effusion is present. The intermediate signal intensity within the anterior ankle joint could represent thickened synovium and/or intra-articular debris; this is not well characterized on these motion degraded noncontrast images (images 8-13, series 4). Bones have normal alignment at the Chopart and Lisfranc joints. SINUS TARSI, TARSAL TUNNEL, SOFT TISSUES: The fat planes of the sinus tarsi are well preserved and the ligaments of the sinus tarsi are intact. There are no soft tissue masses within the tarsal tunnel. There is edema within subcutaneous tissues of the ankle and foot without focal fluid collection. IMPRESSION: Small ankle joint effusion with intra-articular debris and/or thickened synovium (possible synovitis) of the ankle joint. There is evidence of hyperemia within the ankle and proximal foot as manifest by prominent intramedullary vessels and patchy edema-like signal intensity around vessels within the distal tibia, talus and calcaneus. No evidence of focal osseous erosion or marrow infiltration to suggest presence of osteomyelitis. Subcutaneous tissue edema around the ankle without soft tissue abscess.
[2016-10-27] VITALS: BP 132/70
[2016-10-27] MEDS ORDERED: CALTRATE 600 +1 EACH PO (04:12)
[2016-10-27 08:00] VITALS: BP 124/72
[2016-10-27 08:41] LABS: ABSOLUTE BASOPHIL COUNT 0 /CUMM (0.0-0.2); ABSOLUTE EOSINOPHIL COUNT 0 /CUMM (0.0-0.7); ABSOLUTE GRANULOCYTE CT 7.5 /CUMM (1.4-6.5); ABSOLUTE LYMPH COUNT 1.4 /CUMM (1.2-3.4); ABSOLUTE MONOCYTE COUNT 0.7 /CUMM (0.10-0.60); BASOPHIL % 0.3 % (0.0-2.0); EOSINOPHIL % 0 % (0-5); GRANULOCYTE % 78.2 % (42.2-75.2); HEMATOCRIT 31.3 % (42-52); MEAN CORPUSCULAR HGB 30.2 PG (27.0-31.0); MEAN CORPUSCULAR HGB CONC 33.3 G/DL (33.0-37.0); MEAN CORPUSCULAR VOLUME 90.9 FL (80.0-94.0); MEAN PLATELET VOLUME 9.8 FL (7.4-10.4); PLATELET COUNT 142 /CUMM (130-400); RBC DISTRIBUTION WIDTH 14.6 % (11.5-14.5); RED BLOOD CELL CT 3.45 /CUMM (4.70-6.10); WHITE BLOOD CELL COUNT 9.6 /CUMM (4.8-10.8)
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
[2016-10-27 16:18] VITALS: BP 150/70
[2016-10-28 00:09] VITALS: BP 138/70
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
--- NOTE | 2016-10-28 07:08 | Patient Discharge Instructions ---
Discharge Instructions General Discharge Information Special Instructions: Follow up with your primary care provider after discharge. Inform them of your recent hospitalization. Follow up with orthopedist Dr. Smith for further evaluation of your ankle pain. Take tylenol as needed for pain relief, avoid NSAIDs such ibuprofen, motrin, aleve. Take Amoxicillin for two more days from your prescription at home. Stop Taking bactrim. Acute Coronary Syndrome Inclusion Criteria At DC or during hospital stay patient has or had the following: ACS DIAGNOSIS No Discharge Core Measures Meds if any: Prescribed or Continued at Discharge Meds if any: NOT Prescribed or Continued at Discharge Congestive Heart Failure Inclusion Criteria At DC or during hospital stay patient has or had the following: CHF DIAGNOSIS No Discharge Core Measures Meds if any: Prescribed or Continued at Discharge Meds if any: NOT Prescribed or Continued at Discharge Cerebrovascular accident Inclusion Criteria At DC or during hospital stay patient has or had the following: CVA/TIA Diagnosis No Discharge Core Measures Meds if any: Prescribed or Continued at Discharge Meds if any: NOT Prescribed or Continued at Discharge Venous thromboembolism Inclusion Criteria VTE Diagnosis No VTE Type NONE VTE Confirmed by (Test) NONE Discharge Core Measures - Per Current guidelines, there needs to be overlap - treatment for the first 5 days of Warfarin therapy. - If discharged on Warfarin prior to 5 days of - overlap therapy, the patient will need to be - assessed for post discharge needs including - *Post discharge parental anticoagulation - *Warfarin and/or parental anticoagulation education - *Follow up date to check INR post discharge At least 5 days overlap therapy as Inpatient No Meds if any: Prescribed or Continued at Discharge Note: Overlap Therapy is Warfarin and Anticoagulant Meds if any: NOT Prescribed or Continued at Discharge
[2016-10-28 07:58] LABS: ABSOLUTE BASOPHIL COUNT 0 /CUMM (0.0-0.2); ABSOLUTE EOSINOPHIL COUNT 0.1 /CUMM (0.0-0.7); ABSOLUTE GRANULOCYTE CT 5.3 /CUMM (1.4-6.5); ABSOLUTE LYMPH COUNT 1.4 /CUMM (1.2-3.4); ABSOLUTE MONOCYTE COUNT 0.8 /CUMM (0.10-0.60); BASOPHIL % 0.5 % (0.0-2.0); GRANULOCYTE % 70.2 % (42.2-75.2); HEMATOCRIT 30.7 % (42-52); MEAN CORPUSCULAR HGB 30.2 PG (27.0-31.0); MEAN CORPUSCULAR VOLUME 91.5 FL (80.0-94.0); MEAN PLATELET VOLUME 9.8 FL (7.4-10.4); PLATELET COUNT 140 /CUMM (130-400); RBC DISTRIBUTION WIDTH 14.5 % (11.5-14.5); RED BLOOD CELL CT 3.36 /CUMM (4.70-6.10); WHITE BLOOD CELL COUNT 7.6 /CUMM (4.8-10.8)
[2016-10-28 08:00] VITALS: BP 130/60
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
== END 2016-10-28 14:30 | DRG 815 ==
LOC: ERH 19:56 → ERHI 10-26 00:57 → 1NO 10-26 00:57 → ERHI 10-26 07:28 → ENRESERV 10-26 17:08 → 1NO 10-26 17:39 → ENTRNSPT 10-26 17:52 → 1NO 10-26 18:09 → CMPTRNSPT 10-26 18:12 → ENPENDDIS 10-28 11:20 → 1NO 10-28 14:30
PROVIDERS: Emergency Medicine; Internal Medicine Interventional Cardiology; Preventive Medicine Public Health & General Preventive Medicine; ADMIT Internal Medicine
PROC: 0H96XZZ Drainage of Back Skin, External Approach (ICD-10-PCS; principal; 2016-10-26)
DX: T67.0XXA Heatstroke and sunstroke, initial encounter (principal); I61.9 Nontraumatic intracerebral hemorrhage, unspecified; M62.82 Rhabdomyolysis; L03.116 Cellulitis of left lower limb; E87.1 Hypo-osmolality and hyponatremia; L72.3 Sebaceous cyst; I10 Essential (primary) hypertension; E03.9 Hypothyroidism, unspecified; E78.5 Hyperlipidemia, unspecified; F17.210 Nicotine dependence, cigarettes, uncomplicated; F32.9 Major depressive disorder, single episode, unspecified; G89.29 Other chronic pain; M62.81 Muscle weakness (generalized); V03.90XS Pedestrian on foot injured in collision with car, pick-up truck or van, unspecified whether traffic or nontraffic accident, sequela; X30.XXXA Exposure to excessive natural heat, initial encounter; Y92.009 Unspecified place in unspecified non-institutional (private) residence as the place of occurrence of the external cause
CPT/HCPCS: 1NSP; 70552; 70555; 75618; 84133; 84300; 36415; 70553; 80307; 81001; 82436; 82570; 87040; 93005; 93010; 96361; 96374; 96375; 97116-GO; 97161-GP; 97165-GO; 99291; A9579; G0480; J0131; J0690; J0713; J3101; J3370; J7040